=== PATIENT | male | born 1975 | race Hispanic/Latino ===

== ENCOUNTER 2023-10-06 10:10 | Emergency (ER) | payer OTHER ==
[2023-10-06] MEDS ORDERED: Ketorolac Tromethamine 60 MG/2 ML VIAL ONE (10:26)
== END 2023-10-06 10:45 | disposition home or self-care (01) ==
LOC: NAV ERS 10:10
DX: L73.9 Follicular disorder, unspecified (principal)
CPT/HCPCS: 99282; J1885

== ENCOUNTER 2023-12-30 11:36 | Emergency (ER) | payer OTHER, SELFPAY ==
[2023-12-30] MEDS ORDERED: Pantoprazole 40 MG VIAL ONE (12:01)
[2023-12-30] MEDS ORDERED: Ondansetron PF 4 MG/2 ML Vial ONE (12:01)
[2023-12-30] MEDS ORDERED: Sodium Chloride 0.9% 1,000 ML ONE (12:01)
[2023-12-30 12:12] LABS: #Basophils 0.1 thou/uL (0.0-0.2); #Eosinphils 0.5 thou/uL (0.0-0.7); #Lymphocytes 2.5 thou/uL (1.20-3.40); #Monocytes 1.4 thou/uL (0.11-0.59); #Neutrophils 5.6 thou/uL (1.40-6.50); %Basophils 0.9 % (0.0-1.0); %Monocytes 13.8 % (0.0-10.0); %Neutrophils 55.4 % (42.0-75.0); Hematocrit 51.1 % (42.0-52.0); Hemoglobin 16.5 g/dL (14.0-18.0); Mean Corpuscular HGB CONC 32.2 g/dL (32.0-36.0); Mean Corpuscular Hemoglobin 29.9 pg (27.0-31.0); Mean Corpuscular Volume 92.7 fl (78.0-98.0); Mean Platelet Volume 7.2 fL (7.4-10.4); Platelet Count 318 10x3/uL (130-400); RBC Distribution Width 12.9 % (11.5-14.5); Red Blood Cell (RBC) Count 5.52 mill/uL (4.70-6.10); White Blood Cell (WBC) Count 10.2 10x3/uL (4.8-10.8)
[2023-12-30 12:28] LABS: ALT (SGPT) 19 U/L (8-55); AST (SGOT) 18 U/L (5-34); Albumin 4.3 g/dL (3.5-5.0); Alcohol Less than 10.0 mg/dL (Less than 10); Alkaline Phosphatase 83 U/L (40-110); Anion Gap 16 mmol/L (10-20); BUN (Urea Nitrogen) 10 mg/dL (8.9-20.6); Bilirubin, Total 0.5 mg/dL (0.2-1.2); Calc. Creatinine Clearance 0 mL/min (70-130); Calcium 9.8 mg/dL (7.8-10.44); Carbon Dioxide 23 mmol/L (22-29); Chloride 105 mmol/L (98-107); Estimated GFR 110; Globulin 3.6 g/dL (2.4-3.5); Glucose 94 mg/dL (70-105); Lipase 32 U/L (8-78); Protein, Total 7.9 g/dL (6.0-8.3); Sodium 140 mmol/L (136-145)
[2023-12-31 00:02] LABS: SARS-CoV-2 N1 Negative; SARS-CoV-2 N2 Negative; SARS-CoV-2 RNAse P1 Positive; SARS-CoV-2 RNAse P2 Positive
== END 2023-12-30 13:09 | disposition home or self-care (01) ==
LOC: NAV ERS 11:36
DX: A09 Infectious gastroenteritis and colitis, unspecified (principal); F17.210 Nicotine dependence, cigarettes, uncomplicated
CPT/HCPCS: 80053; 80307; 83690; 85025; 87635; 87804; 96361; 96374; 96375; J2405; J2470; J7030

== ENCOUNTER 2024-03-13 08:40 | Emergency (ER) | payer SELFPAY | END 2024-03-13 09:28 | disposition home or self-care (01) | LOC: NAV ERS 08:40 | DX: L23.0 Allergic contact dermatitis due to metals (principal); F17.210 Nicotine dependence, cigarettes, uncomplicated | CPT/HCPCS: 99282 ==